=== PATIENT | male | born 1970 | race Caucasian/White ===

== ENCOUNTER 2021-03-03 18:24 | Inpatient (IN) | payer OTHER ==
[~2021-03-03] VITALS: Ht 185.4 cm; Wt 92.6 kg
[2021-03-03 19:45] LABS: BASOPHIL 0.3 % (0-2); HGB 14.6 g/dl (13.2-18.0); MCH 32.6 pg (25.0-31.0); MONOCYTE 5.1 % (0-12); MPV 10.8 fL (6.0-9.5); NEUTROPHIL 81.2 % (41-80); NRBC 0; PLT 183 K/uL (150-400); RBC 4.48 M/uL (4.70-6.00); RDW 12.5 % (11.5-14.0); WBC 11.1 K/uL (4.0-10.5)
[2021-03-03 20:13] LABS: BILIRUBIN - TOTAL 0.8 mg/dL (0.2-1.0); BUN/CREAT RATIO (CALC) 13.8 RATIO; CREATININE 1.09 mg/dL (0.67-1.17); POTASSIUM 5.6 mmol/L (3.5-5.1)
[2021-03-03 21:59] LABS: MAGNESIUM 2.2 mg/dL (1.8-2.4); PHOSPHORUS 3.8 mg/dL (2.6-4.7)
[2021-03-03 22:19] LABS: AMPHETAMINES NEGATIVE (NEGATIVE); BARBITURATES NEGATIVE (NEGATIVE); ECSTASY (MDMA) NEGATIVE (NEGATIVE); MARIJUANA (THC) NEGATIVE (NEGATIVE); METHADONE NEGATIVE (NEGATIVE); OPIATES NEGATIVE (NEGATIVE); OXYCODONE NEGATIVE (NEGATIVE)
--- NOTE | 2021-03-04 01:03 | NUR ---
PT. UP TO FLOOR WITH SCIENTIFIC AFFAIRS MANAGER VIA STRETCHER. PT. APPEARS PALE, DIAPHORETIC, AND C/O SOA. PT WAS PUT ON 2L BECAUSE O2 IS 87%-89%. HR IS IRREGUALAR AND IS SHOWING ARIB ON THE MONITOR. BP WAS HYPOTENSIVE AT 82/56 MANUALLY. PT WAS PUT ON CARDENE DRIP IN THE ED AND THE CARDENE WAS STOPPED IMMEDIATELY WHEN THE PT. CAME UP TO THE FLOOR PER SHOWROOM MANAGER. PT BP IS CURRENTLY 108/81 AT 0114. WILL CONTIUE TO MONITOR. ER, RN
[2021-03-04 05:12] LABS: BASOPHIL 0.2 % (0-2); EOSINOPHIL 0.4 % (0-5); HCT 40.6 % (42.0-52.0); HGB 13.2 g/dl (13.2-18.0); LYMPHOCYTE 28.3 % (15-48); MCHC 32.5 g/dL (32.0-36.0); MCV 98.3 fL (78.0-100.0); MONOCYTE 6.6 % (0-12); MPV 10.8 fL (6.0-9.5); NEUTROPHIL 64.2 % (41-80); NRBC 0; PLT 145 K/uL (150-400); RBC 4.13 M/uL (4.70-6.00); RDW 12.6 % (11.5-14.0); WBC 10.7 K/uL (4.0-10.5)
[2021-03-04 05:31] LABS: BILIRUBIN - TOTAL 0.7 mg/dL (0.2-1.0); CREATININE 1.08 mg/dL (0.67-1.17); GLOBULIN (CALCULATION) 3.7 g/dL; POTASSIUM 4.7 mmol/L (3.5-5.1); TOTAL PROTEIN 6.7 g/dL (6.4-8.2)
--- NOTE | 2021-03-04 05:39 | NUR ---
AROUND 0445 LAB WAS IN ROOM TRYING TO DRAW LABS. PT. STATED THAT HE DID NOT FEEL GOOD AND THEN "PASSED OUT". THIS EPISODE APPEARED TO BE GRAND MAL SEIZURES. PT. OUT OF IT, DILATED PUPILS, APNEIC PERIODS, GASPING FOR AIR, THRASHING IN BED AND KICKING. CHEMICAL DEPENDENCY PROFESSIONAL AT BS DURING EPISODE. 2MG ATIVAN PUSHED BY CHEMICAL DEPENDENCY PROFESSIONAL AT THIS TIME. WILL CONTINUE TO MONITOR PT. ER,RN
[2021-03-04 06:43] LABS: CKMB 1.1 ng/mL (0.0-3.6)
--- NOTE | 2021-03-04 08:18 | NUR ---
0445 PT. WAS RESTLESS IN BED. HAD "FAINTING" EPISODE X2. LOOKED LIKE SEIZURE ACTIVITY. PT GASPING FOR AIR, THRASHING IN BED. ATIVAN 1MG PUSHED BY AVIATION SAFETY EQUIPMENT TECHNICIAN. AVIATION SAFETY EQUIPMENT TECHNICIAN ACTUALLY WITNESSED THE 2ND "EPISODE". ER, RN
[2021-03-04 09:32] LABS: HCT 33.7 % (42.0-52.0); HGB 10.8 g/dL (13.2-18.0)
--- NOTE | 2021-03-04 12:03 | NUR ---
[facility]IR TRANSPORT HERE TO TRANSPORT PATIENT TO [facility]. ALL DRIPS TRANSFERED OVER BY EMS. REPORT CALLED TO FRANCIE PERAZA AT 0820. PT GIRLFRIEND AT BEDSIDE. HEPARIN DRIP TURNED OFF AT [address] LEE DO NOT RESTART HEPARIN DRIP DRIP DC'D.
--- NOTE | 2021-03-05 22:25 | NUR ---
ADDENDUM: 03/03/21 0110 REPORT INITIALLY CALLED FROM ED FOR TCU BED. DURING REPORT, ED RN, (COREYRN) MENTIONED THAT THE PT WAS ON A CARDENE GTT. TCU RN TOLD ED RN THAT THAT WOULD MAKE HIM AN ICU PT. CALL THEN WAS TRANSFERED TO HISTOLOGIST TECHNOLOGIST (ER,RN). REPORT WAS GIVEN FOLLOWS: 50 YO MALE CAME IN C/O "CANT GET ENOUGH AIR X2-3 WEEKS". INITIAL VS UPON ARRIVAL TO ED: 104/74, 86, 97.1, 18, 97%RA.2HRS LATER HR 140'S. EKG SHOWED NEW ONSET AFIB WITH RVR. INITIALLY AMIODARONE WAS GIVEN IVP WITH NO EFFECT. PT. THEN PUT ON CARDENE GTT @ 5MG/HR BY THE ED NURSE AT 2210. TITRATED TO 7.5MG/HR AT 2235 WITH HR OF 103. CURRENT VS DURING REPORT: 108/69, 103, AFEBRILE, 94% RA, COVID NEGATIVE X2. #20 LAC WITH CARDENE INFUSING AT 7.5MG/HR. 1ST TROPONIN 0.133, SECOND 0.116. NKDA, MEDICAL HX OF KIDNEY STONES. ETOH (DRINKS A FEW BEERS DAILY PER PT.). GF TOLD HISTOLOGIST TECHNOLOGIST THAT THE PT WAS SEEN AT AN [facility] AT THE END OF JANUARY FOR SOA. THEY COVID SWABBED HIM AND IT WAS NEGATIVE. PT. C/O LEFT AXILLARY DOWN TO THE LEFT FLANK AREA PAIN IN THE ED. AFTER REPORT, ER,RN DISCUSSED THE PT. WITH ELISABETRN ABOUT THE CARDENE GTT INFUSING ON PT. WITH BP ON THE LOW SIDE AND A DX OF AFIB. RESEARCH PERFORMED ON CARDENE. 0115 PT. ARRIVED TO UNIT VIA STRETCHER, PT. WALKED FROM STRETCHER TO BED. PT APPEARED SOA SATING AT 88% ON RA, DIAPHORETIC, PALE, CLAMMY, COOL TO TOUCH, WITH WORSENING SHORTNESS OF AIR ON EXERTION. PT. C/O BEING COLD AND THIRSTY. 2L NC PLACED ON PT. ER,RN SPOKE WITH ED RN ABOUT THE REASON FOR CARDENE BEING INFUSED. COREYRN SAID THAT THAT IS JUST WHAT THE MD PREFERRED. ER,RN ADDRESSED THE CARDENE GTT TO AYANNA MENDOZA APRN. MARQUEZ SAID TO STOP THE CARDENE GTT NOW WHICH WAS STOPPED AT 0117 SHORTLY AFTER PT. ARRIVED TO FLOOR. BLOOD PRESURE NOT REGISTERING ON ICU MONITOR. MANUAL BP 82/56. HR IN THE 110'S, AFIB ON THE MONITOR. PT. C/O SOB. NS 1000CC BOLUS. PT RESPONDED WELL TO FLUID BOLUS WITH A BP GOING UP TO THE 110'S/60'S. ~ 0120 D-DIMER WAS ORDERED AND RAN OFF OF BLOOD OBTAINED IN THE ED. 0140 D-DIMER RESULTED AT 11.18. CHEST ENH CTA PERFORMED AT 0155. SOFTWARE SALES EXECUTIVE VIEWED THE REPORT AND PT. HAD 2 LARGE B/L PE. HEPARIN GTT ORDERED. 0351 HEPARIN GTT INITIATED AT 11U/HR WITH AN INITIAL BOLUS OF 5500U GIVEN PER PROTOCOL. HEPARIN GTT CHECKED BY TWO RN'S: CATY AND MARTIN. 0348: AFTER HOUR PHARMACIST AISLINN WAS CALLED BY ER,RN IN REGARDS TO THE EFFECTS OF CARDENE. AISLINN SAID THAT THE DRUG SHOULD WEAR OFF IN 30 MIN TO 4HRS. WITH 50% OF THE DECREASE IN BP BEING WITHIN THAT FIRST 45 MIN. 0400: PT RESTIG COMFORTABLY WITH GF AT BEDSIDE. VS: 98.2 ORAL, HR 111, 93% 4LNC, R 25, BP 139/65. NO SIGNS OF DISTRES AT THIS TIME. 0445: LAB IN ROOM TO DRAW LABS. [facility] CALLED OUT FOR HELP IN THE ROOM. ER,RN WENT IN TO FIND PT HAVING "SEIZURE-LIKE" FAINTING EPISODE. GIRLFRIEND AT BEDSIDE STATES THAT THIS TIS THE "FAINTING" EPISODE THAT PT. HAD IN THE CARE EN ROUTE TO THE HOSPITAL. PT. PUPILS DILATED, UNRESPONSIVE TO VOICE, "OUT OF IT", APPROXIMATELY 5-10 SEC OF APNEIC PERIODS ENDING IN PT GASPING FOR AIR. ONCE PT CAME TO HE WOULD FALL INTO A RESTLESS SLEEP WITH LOUD SNORING. SOFTWARE SALES EXECUTIVE CALLED TO BEDSIDE TO WITNESS SECOND EPISODE. PT. CAME TO, BUT STILL LETHARGIC, SPEECH GARBLED. THRASHING IN BED, ATTEMPTING TO GET UP, ARMS SWATTING AT THE AIR, LEGS KICKING FOOT BOARD. AIDE CALLED TO BEDSIDE TO MONITOR PT. BLOOD GLUCOSE PERFOMED BY FARIBA. BLOOD GLUCOSE 198. 2ND IV ACCESS WAS OBTAINED #20 LW-CARDIZEM BOLUS GIVEN 20MG/4ML. CARDIZEM GTT INITIATED AT 5MG/HR. HR 90'S TO 120'S. O551 ER,RN AT BEDSIDE. PT HAD ANOTHER SEIZURE LIKE EPISODE, BUT THIS TIME THE EYES ROLLED TO THE BACK OF HIS HEAD AND RN DID NOT SEE ANY VISUALIZATION OF CHEST RISE/FALL. CODE BLUE INITIATED. NO PULSE, PEA. 0552 CPR STARTED. EMERGENCY ROOM RESPONDED TO CODE. 0644 CRITICAL TROPONIN 0.087. SOFTWARE SALES EXECUTIVE NOTIFIED.
== END 2021-03-04 10:30 | disposition other institution (70) | DRG 208 ==
LOC: FER 18:24 → FICU 23:55
PROVIDERS: Emergency Medicine; Internal Medicine; Nurse Practitioner; ADMIT Internal Medicine
PROC: 0BH17EZ Insertion of Endotracheal Airway into Trachea, Via Natural or Artificial Opening (ICD-10-PCS; principal; 2021-03-04)
PROC: 5A1935Z Respiratory Ventilation, Less than 24 Consecutive Hours (ICD-10-PCS; 2021-03-04)
PROC: 3E033XZ Introduction of Vasopressor into Peripheral Vein, Percutaneous Approach (ICD-10-PCS; 2021-03-04)
PROC: 3E03317 Introduction of Other Thrombolytic into Peripheral Vein, Percutaneous Approach (ICD-10-PCS; 2021-03-04)
PROC: 5A12012 Performance of Cardiac Output, Single, Manual (ICD-10-PCS; 2021-03-04)
DX: I26.99 Other pulmonary embolism without acute cor pulmonale (principal); I46.9 Cardiac arrest, cause unspecified; R40.20 Unspecified coma; K92.2 Gastrointestinal hemorrhage, unspecified; I48.91 Unspecified atrial fibrillation; I95.2 Hypotension due to drugs; T46.1X5A Adverse effect of calcium-channel blockers, initial encounter; E87.5 Hyperkalemia; Z20.822 Contact with and (suspected) exposure to COVID-19; K21.9 Gastro-esophageal reflux disease without esophagitis; Z87.442 Personal history of urinary calculi; Z79.899 Other long term (current) drug therapy
CPT/HCPCS: 36415; 36600; 71045; 71275; 74018; 80048; 80053; 80061; 80305; 82553; 82803; 83735; 84100; 84484; 85014; 85018; 85025; 85379; 85730; 93005; 94002; C9113; J0171; J0282; J0461; J1250; J1644; J2060; J2250; J2370; J2997; J7030; J7040; J7060; J7070; Q9967; U0002